=== PATIENT | male | born 1970 | race Caucasian/White ===

== ENCOUNTER 2023-03-09 08:03 | Day surgery (SDC) | payer BC ==
[~2023-03-09] VITALS: Ht 152.4 cm; Wt 62.6 kg
[2023-03-09 08:50] VITALS: O2SAT 99
[2023-03-09] MEDS ORDERED: SIMETHICONE 40 MG/0.6 ML ML ONE (08:56)
[2023-03-09] MEDS ORDERED: MEPERIDINE 100 MG INJ. 100 MG/ML VIAL ONE (08:56)
[2023-03-09] MEDS ORDERED: MIDAZOLAM HCL 5 MG/5 ML VIAL ONE (08:57)
[2023-03-09] MEDS ORDERED: BENZOCAINE 20% 0.5mL UD SPRAY MM ONE (10:27)
[2023-03-09 14:16] VITALS: BP_SYST 117; PULSE 65; RESP 10
== END 2023-03-09 11:50 | disposition home or self-care (01) ==
LOC: SDS 08:03 → SMU 08:04 → SDS 11:50
PROVIDERS: ATTEND Internal Medicine
DX: D50.9 Iron deficiency anemia, unspecified (principal); K63.5 Polyp of colon; K29.80 Duodenitis without bleeding; K29.50 Unspecified chronic gastritis without bleeding; K64.8 Other hemorrhoids; K44.9 Diaphragmatic hernia without obstruction or gangrene
CPT/HCPCS: 45380; 43239; 88305; 88312; 88313; 99152; 99153; G0378; J2250; J2175